=== PATIENT | male | born 1990 ===

== ENCOUNTER 2017-10-07 20:06 | Emergency (ER) | payer OTHER ==
[2017-10-07 20:41] VITALS: BP 123/82; PULSE 77; RESP 20; TEMP 99.2; O2SAT 100
[2017-10-07 22:05] LABS: URINE BILIRUBIN NEGATIVE (NEGATIVE); URINE BLOOD NEGATIVE (NEGATIVE); URINE CLARITY Clear (Clear); URINE COLOR Yellow (YELLOW); URINE GLUCOSE (UA) NORMAL (Normal); URINE LEUKOCYTE ESTERASE NEG Leu/uL (Negative); URINE PROTEIN NEGATIVE (NEGATIVE); URINE UROBILINOGEN NORMAL mg/dL (0.2-1.0)
--- NOTE | 2017-10-07 22:40 | C.PDOC ---
History Of Present Illness Patient sts he is lifting heavy objects at work. Patient sts he developed low back pain after work 4 days ago that is getting worse. Pain located at the right side of the low back, worse with movement and walking. Patient denies radiation of pain, any urinary symptoms, any extremity weakness or numbness. Time Seen by Provider: 10/07/17 21:11 Chief Complaint (Nursing): Back Pain History Per: Patient History/Exam Limitations: no limitations Onset/Duration Of Symptoms: Days (4) Current Symptoms Are (Timing): Still Present Severity: Moderate Pain Scale Rating Of: 5 Previous Symptoms: Back Pain Exacerbating Factor(s): Turning, Movement, Standing Past Medical History Reviewed: Historical Data, Nursing Documentation, Vital Signs Vital Signs: Last Vital Signs Temp 99.2 F 10/07/17 20:33 Pulse 77 10/07/17 20:33 Resp 20 10/07/17 20:33 BP 123/82 10/07/17 20:33 Pulse Ox 100 10/07/17 22:41 - Medical History PMH: Asthma Family History: States: Unknown Family Hx - Social History Hx Tobacco Use: Yes Hx Alcohol Use: No Hx Substance Use: No - Immunization History Hx Tetanus Toxoid Vaccination: No Hx Influenza Vaccination: Yes Hx Pneumococcal Vaccination: No Review Of Systems Except As Marked, All Systems Reviewed And Found Negative. Physical Exam - Physical Exam Appears: Well, Non-toxic, No Acute Distress Skin: Normal Color, Warm, No Rash Head: Atraumatic, Normacephalic Eye(s): bilateral: Normal Inspection Throat: Normal Neck: Normal ROM Chest: No Deformity, No Tenderness Cardiovascular: Rhythm Regular Respiratory: Normal Breath Sounds Gastrointestinal/Abdominal: Soft, No Tenderness Back: No CVA Tenderness, No Vertebral Tenderness, Paraspinal Tenderness (right Lumbar area) Extremity: Normal ROM, No Tenderness, No Swelling Neurological/Psych: Oriented x3, Normal Speech, Normal Cognition, Normal Motor, Normal Sensation ED Course And Treatment O2 Sat by Pulse Oximetry: 100 - Other Rad LS spine xray X-Ray: Interpreted by Me Interpretation: no abnormalities Progress Note: UA-negative. Patient was treated with Toradol IM with improvement. Patient is ambulatory in Ed w/o neuro deficit. He is stable to be d /c home with PMD follow up. Disposition - Disposition Disposition: HOME/ ROUTINE Disposition Time: 22:30 Condition: IMPROVED Additional Instructions: Follow up with your PMD within 1-2 days. Return to ED if feel worse. Prescriptions: Cyclobenzaprine [Cyclobenzaprine HCl] 10 mg PO TID #15 tab Ibuprofen [Motrin Tab] 600 mg PO Q8 #30 tab Instructions: Low Back Pain in Adults Forms: [facility] (Greek), Work Excuse - Clinical Impression Clinical Impression: Low back strain
--- NOTE | 2017-10-08 08:24 | RAD ---
PROCEDURE: Radiographs of the Lumbar Spine. HISTORY: Low back pain COMPARISON: No prior. FINDINGS: BONES: Normal alignment. No listhesis. No fracture. DISC SPACES: Unremarkable. OTHER FINDINGS: None. IMPRESSION: Unremarkable radiographs of the lumbar spine.
== END 2017-10-07 22:45 | disposition home or self-care (01) ==
LOC: C.ER 20:06
DX: S39.012A Strain of muscle, fascia and tendon of lower back, initial encounter (principal); X50.0XXA Overexertion from strenuous movement or load, initial encounter; Y92.89 Other specified places as the place of occurrence of the external cause; Y99.0 Civilian activity done for income or pay

== ENCOUNTER 2017-10-17 10:57 | Emergency (ER) | payer OTHER ==
[2017-10-17 11:10] VITALS: BP 135/87; PULSE 98; RESP 16; TEMP 98.1; O2SAT 99
[2017-10-17] MEDS ORDERED: Tetracaine 0.5% Ophth 2 ML BOTTLE OU ONE (11:59)
[2017-10-17] MEDS ORDERED: Tetracaine 0.5% Ophth (OR ONLY) ONE (12:18)
[2017-10-17] MEDS ORDERED: Fluorescein 1 mg Ophthalmic Strip ONE (12:19)
--- NOTE | 2017-10-17 12:53 | C.PDOC ---
History Of Present Illness 26-year-old male, presents to the emergency department with complaints of redness and burning pain to both eyes for the past three days. Pt states he was recently ill with viral upper respiratory infection. Denies fever, vomiting, diarrhea, rash, travel, injury to eye,m visual changes, or any other associated symptoms. No other complaints at this time. Time Seen by Provider: 10/17/17 11:52 Chief Complaint (Nursing): Eye Problem History Per: Patient History/Exam Limitations: no limitations Past Medical History Reviewed: Historical Data, Nursing Documentation, Vital Signs Vital Signs: Last Vital Signs Temp 98.1 F 10/17/17 11:08 Pulse 98 H 10/17/17 11:08 Resp 16 10/17/17 11:08 BP 135/87 10/17/17 11:08 Pulse Ox 99 10/17/17 19:51 - Medical History PMH: Asthma Family History: States: No Known Family Hx - Social History Hx Tobacco Use: Yes Hx Alcohol Use: No Hx Substance Use: No - Immunization History Hx Tetanus Toxoid Vaccination: No Hx Influenza Vaccination: Yes Hx Pneumococcal Vaccination: No Review Of Systems Constitutional: Negative for: Fever, Chills Eyes: Positive for: Pain, Redness. Negative for: Vision Change ENT: Negative for: Ear Pain Respiratory: Negative for: Shortness of Breath Gastrointestinal: Negative for: Vomiting Skin: Negative for: Rash Neurological: Negative for: Weakness, Numbness Physical Exam - Physical Exam Appears: Non-toxic, No Acute Distress Skin: Warm, Dry, No Rash Head: Atraumatic, Normacephalic Eye(s): bilateral: PERRL, EOMI, Other (Bilateral conjunctival injection. No foreign body on lid eversion. ) Nose: Normal Oral Mucosa: Moist Lips: Normal Appearing Throat: No Erythema, No Exudate Neck: Normal ROM, Supple Chest: Symmetrical, No Tenderness Cardiovascular: Rhythm Regular, No Friction Rub, No Murmur Respiratory: Normal Breath Sounds, No Accessory Muscle Use, No Wheezing Extremity: Normal ROM, No Deformity, No Swelling Neurological/Psych: Oriented x3, Normal Speech, Normal Motor Gait: Steady ED Course And Treatment O2 Sat by Pulse Oximetry: 99 (RA) Pulse Ox Interpretation: Normal Medical Decision Making Medical Decision Making: (-)FLUORESCEIN UPTAKE Disposition - Disposition Referrals: Rolando Haro MD [Staff Provider] - Disposition: HOME/ ROUTINE Disposition Time: 12:50 Condition: GOOD Additional Instructions: Follow up with the medical doctor within 1-2 days. Return if worsened. Prescriptions: Dexamethasone/Tobramycin [Tobradex 0.1%-0.3% 2.5 Ml] 1 drop OU TID #1 bottle Instructions: Conjunctivitis (Pinkeye) (DC) Forms: [facility] (Czech) - Clinical Impression Clinical Impression: Conjunctivitis - Scribe Statement The provider has reviewed the documentation as recorded by the Scribe (Alfred Renee) All medical record entries made by the Scribe were at my direction and personally dictated by me. I have reviewed the chart and agree that the record accurately reflects my personal performance of the history, physical exam, medical decision making, and the department course for this patient. I have also personally directed, reviewed, and agree with the discharge instructions and disposition.
== END 2017-10-17 13:02 | disposition home or self-care (01) ==
LOC: C.ER 10:57
DX: H10.9 Unspecified conjunctivitis (principal)